=== PATIENT | female | born 1950 | race Caucasian/White ===

== ENCOUNTER → 2018-12-31 | Outpatient (CLI) | payer MEDICARE, OTHER ==
[2018-12-31 10:42] LABS: ANION GAP 16.7; CHLORIDE,CL 104 mmol/L (101-111); SODIUM,NA 140 mmol/L (135-145)
== END ==
LOC: DL.LAB 10:01
PROVIDERS: ATTEND Internal Medicine Hematology & Oncology
DX: E83.110 Hereditary hemochromatosis (principal)
CPT/HCPCS: 36415; 80053; 82728; 83540; 83550; 85025

== ENCOUNTER 2024-05-05 07:59 | Day surgery (SDC) | payer MEDICARE, OTHER ==
[2024-05-05] MEDS ORDERED: Sodium Chloride 0.9% 10 ML Syringe FLUSH PRN (08:30)
[2024-05-05] MEDS ORDERED: Acetaminophen 325 MG Tab PO PRN (08:30)
[2024-05-05] MEDS ORDERED: Acetaminophen/Codeine 300-30 MG Tab PO PRN (08:30)
[2024-05-05] MEDS ORDERED: Ondansetron 4 MG/2 ML SDV IVPUSH PRN (08:30)
[2024-05-05] MEDS: Proparacaine 0.5% Ophth Soln 15 ML Bottle EYELF ONE ×2 (08:50→09:28)
[2024-05-05] MEDS: Moxifloxacin 0.5% Ophth Soln 3 ML Bottle EYELF ONE (08:51)
[2024-05-05] MEDS: Povidone-Iodine 5% Sterile Ophth Soln 30 ML Bottle EYELF ONE ×2 (08:51→09:30)
[2024-05-05] MEDS: Phenylephrine 10% Ophth Soln 5 ML Bot EYELF ONE (08:52)
[2024-05-05] MEDS: Tropicamide 1% Ophth Soln 15 ML Bottle EYELF ONE (08:52)
[2024-05-05] MEDS: Cataract Ophth Solution EYELF ONE (08:53)
[2024-05-05] MEDS: Timolol Maleate 0.5% Ophth Soln 5 ML Bottle EYELF ONE (08:53)
[2024-05-05] MEDS: Vancomycin 500 MG SDV EYELF ONE (09:36)
[2024-05-05] MEDS: Lidocaine 1% 30 ML SDV ONE (09:36)
[2024-05-05] MEDS: Apraclonidine 0.5% Ophth Soln 5 ML Bot EYELF ONE ×2 (09:37→09:43)
[2024-05-05] MEDS: Diclofenac Sodium 0.1% Ophth Soln 5 ML Bottle EYELF ONE ×2 (09:37→09:44)
[2024-05-05] MEDS: Dexamethasone/Neomycin/Polymyxin B Ophth Oint 3.5 GM Tube EYELF ONE ×2 (09:38→09:45)
[2024-05-05 10:25] VITALS: BP 115/74; PULSE 75
== END 2024-05-05 10:20 | disposition home or self-care (01) ==
LOC: DL.SDS 07:59
PROVIDERS: ATTEND Ophthalmology
DX: E11.36 Type 2 diabetes mellitus with diabetic cataract (principal); H25.812 Combined forms of age-related cataract, left eye; K21.9 Gastro-esophageal reflux disease without esophagitis; E78.00 Pure hypercholesterolemia, unspecified; E21.3 Hyperparathyroidism, unspecified; Z79.899 Other long term (current) drug therapy
CPT/HCPCS: A9270-GY; J3370; J3490

== ENCOUNTER 2024-06-23 07:18 | Day surgery (SDC) | payer MEDICARE, OTHER ==
[~2024-06-23 07:18] MED LIST: Acetaminophen 325 MG Tab PO PRN; Acetaminophen/Codeine 300-30 MG Tab PO PRN; Cataract Ophth Solution EYERT ONE; Dexamethasone 4 MG/ML SDV ONE; Dexamethasone/Tobramycin 0.1-0.3% Ophth Oint 3.5 GM Tube ONE; Moxifloxacin 0.5% Ophth Soln 3 ML Bottle EYERT ONE; Ondansetron 4 MG/2 ML SDV IVPUSH PRN; Phenylephrine 10% Ophth Soln 5 ML Bot EYERT ONE; Povidone-Iodine 5% Sterile Ophth Soln 30 ML Bottle EYERT ONE; Proparacaine 0.5% Ophth Soln 15 ML Bottle EYERT ONE; Proparacaine 0.5% Ophth Soln 15 ML Bottle ONE; Sodium Chloride 0.9% 10 ML Syringe FLUSH PRN; Timolol Maleate 0.5% Ophth Soln 5 ML Bottle EYERT ONE; Tropicamide 1% Ophth Soln 15 ML Bottle EYERT ONE
[2024-06-23] MEDS ORDERED: Acetaminophen/Codeine 300-30 MG Tab PO PRN (07:30)
[2024-06-23] MEDS ORDERED: Ondansetron 4 MG/2 ML SDV IVPUSH PRN (07:30)
[2024-06-23] MEDS ORDERED: Acetaminophen 325 MG Tab PO PRN (07:30)
[2024-06-23] MEDS: Sodium Chloride 0.9% 10 ML Syringe FLUSH PRN (07:45)
[2024-06-23] MEDS: Proparacaine 0.5% Ophth Soln 15 ML Bottle EYERT ONE ×2 (07:48→08:43)
[2024-06-23] MEDS: Moxifloxacin 0.5% Ophth Soln 3 ML Bottle EYERT ONE (07:49)
[2024-06-23] MEDS: Povidone-Iodine 5% Sterile Ophth Soln 30 ML Bottle EYERT ONE ×2 (07:50→08:43)
[2024-06-23] MEDS: Phenylephrine 10% Ophth Soln 5 ML Bot EYERT ONE (07:51)
[2024-06-23] MEDS: Tropicamide 1% Ophth Soln 15 ML Bottle EYERT ONE (07:51)
[2024-06-23] MEDS: Cataract Ophth Solution EYERT ONE (07:52)
[2024-06-23] MEDS: Timolol Maleate 0.5% Ophth Soln 5 ML Bottle EYERT ONE (07:52)
[2024-06-23] MEDS: Lidocaine 1% 30 ML SDV ONE (08:42)
[2024-06-23] MEDS: Apraclonidine 0.5% Ophth Soln 5 ML Bot EYERT ONE (08:43)
[2024-06-23] MEDS: Vancomycin 500 MG SDV EYERT ONE (08:44)
[2024-06-23] MEDS: Dexamethasone/Neomycin/Polymyxin B Ophth Oint 3.5 GM Tube EYERT ONE (08:44)
[2024-06-23] MEDS: Diclofenac Sodium 0.1% Ophth Soln 5 ML Bottle EYERT ONE (08:44)
[2024-06-23 09:20] VITALS: BP 121/72; PULSE 76
== END 2024-06-23 09:22 | disposition home or self-care (01) ==
LOC: DL.SDS 07:18
PROVIDERS: ATTEND Ophthalmology
DX: E11.36 Type 2 diabetes mellitus with diabetic cataract (principal); H25.811 Combined forms of age-related cataract, right eye; E78.5 Hyperlipidemia, unspecified; Z79.899 Other long term (current) drug therapy
CPT/HCPCS: 66984; A9270; J3370; V2632; J3490